=== PATIENT | female | born 1950 | race Caucasian/White ===

== ENCOUNTER 2017-08-06 01:27 | Inpatient (IN) | payer OTHER ==
[~2017-08-06] VITALS: Ht 167.6 cm; Wt 76.7 kg
[~2017-08-06 01:27] MED LIST: AMLODIPINE BESY10 M1 PO; BIOTIN1 MG; TURMERIC500 M2; VITAMIN B COMP1 EACH; VITAMIN C500 M7 PO
[2017-08-06] MEDS ORDERED: DILAUDID2 M1 PO (10:59)
[2017-08-06] MEDS ORDERED: PROTONIX20 M1 PO (10:59)
[2017-08-06] MEDS ORDERED: ASPIRIN EC81 M1 PO (10:59)
[2017-08-06] MEDS ORDERED: MIRALAX17 G1 PO (10:59)
[2017-08-06] MEDS ORDERED: COLACE100 M1 PO (10:59)
--- NOTE | 2017-08-06 11:03 | Patient Discharge Instructions ---
Discharge Instructions General Discharge Information You were seen/treated for: Right hip pain You had these procedures: Right total hip revision Watch for these problems: Fever over 101, Drainage from the wound, Redness or swelling around wound, Unable to bear weight on the right lower extremity No bath, but you may shower: Yes Special Instructions: Daily dry dressing change Diet Continue normal diet: Yes Activity Activity Limited to: Weight bear as tolerated (with rolling walker) Acute Coronary Syndrome Inclusion Criteria At DC or during hospital stay patient has or had the following: ACS DIAGNOSIS No Discharge Core Measures Meds if any: Prescribed or Continued at Discharge Meds if any: NOT Prescribed or Continued at Discharge Congestive Heart Failure Inclusion Criteria At DC or during hospital stay patient has or had the following: CHF DIAGNOSIS No Discharge Core Measures Meds if any: Prescribed or Continued at Discharge Meds if any: NOT Prescribed or Continued at Discharge Cerebrovascular accident Inclusion Criteria At DC or during hospital stay patient has or had the following: CVA/TIA Diagnosis No Discharge Core Measures Meds if any: Prescribed or Continued at Discharge Meds if any: NOT Prescribed or Continued at Discharge Venous thromboembolism Inclusion Criteria VTE Diagnosis No VTE Type NONE VTE Confirmed by (Test) NONE Discharge Core Measures - Per Current guidelines, there needs to be overlap - treatment for the first 5 days of Warfarin therapy. - If discharged on Warfarin prior to 5 days of - overlap therapy, the patient will need to be - assessed for post discharge needs including - *Post discharge parental anticoagulation - *Warfarin and/or parental anticoagulation education - *Follow up date to check INR post discharge At least 5 days overlap therapy as Inpatient No Meds if any: Prescribed or Continued at Discharge Note: Overlap Therapy is Warfarin and Anticoagulant Meds if any: NOT Prescribed or Continued at Discharge
--- NOTE | 2017-08-06 11:03 | Admission Core Measures ---
Acute Coronary Syndrome (CM) ACS Core Measures Acute Coronary Syndrome Diagnosis No Congestive Heart Failure (NEW) CHF Core Measures Congestive Heart Failure Diagnosis No Cerebrovascular Accident CVA Core Measures CVA/TIA Diagnosis No Venous Thromboembolism VTE Core Pawan (View Protocol) VTE Risk Factors Surgery No Mechanical VTE Prophylaxis d/t N/A MechProphylax Ordered No VTE Pharm Prophylaxis d/t NA PharmProphylax ordered Problem List As ranked by this Provider includes Assessment & Plan 1. Mechanical complication of prosthetic hip implant HOME MEDS Home Med List Amlodipine Besylate 10 MG TABLET 1 TAB PO DAILY HTN (Reported) Ascorbic Acid (Vitamin C) 500 MG CAPSULE.ER 1 CAP PO DAILY SUPPLEMENT ( Reported) Aspirin (Ecotrin*) 81 MG TABLET.DR 1 TAB PO BID DVT PPX Docusate Sodium (Colace) 100 MG CAPSULE 1 CAP PO BID STOOL SOFTENER Hydromorphone HCl (Dilaudid) 2 MG TABLET 1-2 TAB PO Q4-6 PRN PRN PAIN Pantoprazole Sodium (Protonix) 20 MG TABLET.DR 1 TAB PO DAILY GI PROTECTION Polyethylene Glycol 3350 (Miralax) 17 GRAM POWD.PACK 1 PAC PO DAILY CONSTIPATION
--- NOTE | 2017-08-06 11:06 | Surgical Discharge Summary ---
Visit Information Visit Dates Admission Date: 08/06/17 Discharge Date: 08/08/17 History of Present Illness Chief Complaint: Right hip pain Surgical History Pertinent Surgical History: hip replacement Review of Systems: As per [facility] Hospital Course Course Attending Physician: Obi Hughes MD Primary Care Physician: Lucia MADERA,[facility] Hospital Course: Patient presented on 08/06/2017 to [facility] for an elective right total hip revision by Dr. Hughes. Patient tolerated the procedure well. Postoperatively she was voiding spontaneously, tolerating a regular diet, pain was managed with by mouth pain medications, and she was ambulating with a rolling walker with physical therapy and was cleared for DC to home. She was given discharge instructions. She was instructed to follow up with Dr. Hughes in 6 weeks and to call sooner with any questions or concerns. Allergies: Coded Allergies: No Known Allergies (08/03/17) NKA PER ANTIBIOTIC ORDER SHEET OF 08/03/17 ([facility]) Disposition Summary Disposition Principal Diagnosis: Complication of right hip implant Additional Diagnosis: Status post right total hip revision Discharge Disposition: home health services Discharge Instructions General Discharge Information Code Status: Full Code Patient's Diet: Regular diet Patient's Activity: Weight-bearing as tolerated with rolling walker Follow-Up Instructions/Appts: Follow-up with Dr. Hughes in 6 weeks Medications at Discharge Discharge Medications: Continue taking these medications: Amlodipine Besylate (Amlodipine Besylate) 10 MG TABLET 1 Tablet ORAL DAILY Turmeric Root Extract (Turmeric) 500 MG CAPSULE Ascorbic Acid (Vitamin C) 500 MG CAPSULE.ER 1 Capsule ORAL DAILY Biotin (Biotin) 1 MG CAPSULE Vitamin B Complex (Vitamin B Complex) 1 EACH CAPSULE Start taking the following new medications: Aspirin (Ecotrin*) 81 MG TABLET.DR 1 Tablet ORAL TWICE DAILY Qty = 60 No Refills Hydromorphone HCl (Dilaudid) 2 MG TABLET 1-2 Tablet ORAL EVERY 4-6 HOURS NEEDED as needed for PAIN Qty = 36 No Refills Docusate Sodium (Colace) 100 MG CAPSULE 1 Capsule ORAL TWICE DAILY Qty = 14 No Refills Instructions: STOP TAKING IF YOU DEVELOP LOOSE STOOL/DIARRHEA Polyethylene Glycol 3350 (Miralax) 17 GRAM POWD.PACK 1 Packet ORAL DAILY Qty = 7 No Refills Instructions: dissolve in water. STOP TAKING IF YOU DEVELOP LOOSE STOOL/DIARRHEA Pantoprazole Sodium (Protonix) 20 MG TABLET.DR 1 Tablet ORAL DAILY Qty = 30 No Refills Copies To: Lucia MADERA,Lucita
--- NOTE | 2017-08-06 16:25 | RADIOLOGY REPORT ---
EXAMINATION: XR HIP, RIGHT CLINICAL INFORMATION: In PACU. COMPARISON: None TECHNIQUE: Two views of the right hip. FINDINGS: Hardware from right hip arthroplasty with femoral cerclage wire noted. The prosthetic femoral head is well situated over the acetabular component. No acute fracture. Surgical drain about the right hip and overlying skin christopher. Postsurgical soft tissue changes. IMPRESSION: Status post right hip arthroplasty without radiographic evidence of acute complication.
[2017-08-06 16:45] VITALS: BP 110/70
--- NOTE | 2017-08-06 17:35 | Operative Report ---
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 After induction of spinal anesthesia and administration of appropriate pre-operative antibiotics, the patient was positioned supine on the operating room table and all bony prominences were well padded. After performing a surgical timeout, the right lower extremity was prepped and draped in the usual sterile fashion. Utilizing the previous incision, an extensile direct anterior approach was made to the right hip. This was carried down through skin and subcutaneous tissue to level the fascia. Meticulous hemostasis was maintained with Bovie electrocautery. The fascia puneet muscle was opened sharply taking care to stay lateral to the lateral femoral cutaneous nerve. The interval between the sartorius and the TFL was entered bluntly and retractors were placed around the anterior pseudocapsule. Prior to opening the capsule it was noted that the capsular area seemed quite full and bulky. A T capsulectomy was performed anteriorly. It was immediately apparent that of the capsular tissue and some of the abductor mechanism had been replaced by caseous, necrotic material. Samples of the pseudocapsule and underlying material was sent for microbiological analysis as well as pathological analysis. Exposure continued until the neck and head were fully exposed. The hip was dislocated and the femoral head and neck were removed with the appropriate instrumentation. Black material was noted at the stem-neck interface. It was noted that the greater trochanter had become osteolytic. Attention was then turned to the acetabulum. The acetabulum was circumferentially exposed. The previous MDM liner was disimpacted with the appropriate tool. The acetabular component was noted to be quite well fixed and in good position. It was irrigated. It was then fit with a new 36 mm 0 Trident X3 polyethylene insert. Attention was then returned to the femur. A Dall-Miles cable was placed proximal to the lesser trochanter. A 1 mm high- speed bur was used to gain entry at the stem bone interface. Flexible osteotomes were then used to disrupt the bone prosthesis interface. Due to the fact that the stem was exceedingly well fixed and the bone quite osteolytic, the greater trochanter, or what was left of it, became quite fragmented. Ultimately , this became a trochanteric osteotomy which greatly aided in exposure of the femoral canal. After the stem was removed, the wound bed was irrigated. The femur was then prepared for a Brittany jew modular conical distal stem. The canal was reamed to accept a 15 mm x 155 mm jew modular conical distal stem. This was impacted into place. The proximal femur was then prepared to accept a 21 mm +0 cone body. This was trialed for leg length and stability. The trial cone body was removed and the final cone body was impacted into place. The torque bolt was tightened to specification. The trunnion was meticulously cleaned and fit with a 36 mm +5 Biolox delta ceramic femoral head. The hip was reduced and put through a full range motion and found to be satisfactorily stable. A medium Hemovac drain was left within the articular space. The wound was copiously irrigated with sterile saline. The articular soft tissues were then infiltrated with Marcaine. The fascial layer was closed with interrupted #1 Vicryl sutures. The skin was reapproximated with interrupted 2-0 Vicryl and closed with christopher. Sterile dressings were applied and the patient was awakened and taken to the recovery room in satisfactory condition.
[2017-08-06 19:38] VITALS: BP 114/67
--- NOTE | 2017-08-06 20:40 | PN- Orthopedic ---
Subjective Subjective: feeling ok, some soreness r hip/groin. mamadou reg diet. no n/v/cp/sob. no oob yet. dtv postop Objective Vital Signs and I&Os Vital Signs Date Time Temp Pulse Resp B/P B/P Pulse O2 O2 Flow FiO2 Mean Ox Delivery Rate 08/06 1937 97.9 61 20 114/67 94 Room Air 08/06 1905 Room Air 08/06 1645 98.0 70 18 110/70 92 Room Air Physical Exam: gen- nad card-s1s2 rrr pulm- ctab abd- soft nt ext- r hip dressing cdi, hemovac in place w approx 100cc sanguinous drainage, grosssensation intact ble, +dorsi/plantar flexion bl Assessment/Plan Assessment/Plan A- POD0 sp revision R ESPERANZA, ebl 500cc, stable w expected pain P- hv to self suction oob, pt, wbat asa 81 bid home meds prn pain meds dtv postop diet as tolerated dsg change pod2 will dw attending Core Measures Venous Thromboembolism VTE Risk Factors Surgery No Mechanical VTE Prophylaxis d/t N/A MechProphylax Ordered No VTE Pharm Prophylaxis d/t NA PharmProphylax ordered
[2017-08-06 22:32] VITALS: BP 110/70
[2017-08-07 02:05] VITALS: BP 104/60
[2017-08-07 06:16] VITALS: BP 144/82
[2017-08-07 08:35] LABS: ABSOLUTE BASOPHIL COUNT 0 /CUMM (0.0-0.2); ABSOLUTE EOSINOPHIL COUNT 0 /CUMM (0.0-0.7); ABSOLUTE GRANULOCYTE CT 8.2 /CUMM (1.4-6.5); ABSOLUTE LYMPH COUNT 1.1 /CUMM (1.2-3.4); ABSOLUTE MONOCYTE COUNT 0.4 /CUMM (0.10-0.60); BASOPHIL % 0.2 % (0.0-2.0); EOSINOPHIL % 0.2 % (0-5); HEMATOCRIT 33.3 % (37-47); MEAN CORPUSCULAR HGB 31.6 PG (27.0-31.0); MEAN CORPUSCULAR HGB CONC 33.7 G/DL (33.0-37.0); MEAN CORPUSCULAR VOLUME 93.7 FL (81.0-99.0); MEAN PLATELET VOLUME 7.3 FL (7.4-10.4); PLATELET COUNT 308 /CUMM (130-400); RBC DISTRIBUTION WIDTH 13.3 % (11.5-14.5); RED BLOOD CELL CT 3.56 /CUMM (4.20-5.40); WHITE BLOOD CELL COUNT 9.8 /CUMM (4.8-10.8)
[2017-08-07 09:35] LABS: GRANULOCYTE % 83.9 % (42.2-75.2)
--- NOTE | 2017-08-07 11:39 | PN- Orthopedic ---
Subjective Subjective: Patient comfortable, pain is mostly controlled, she is having some pain down the leg towards the knee. No acute events overnight. She was able to walk with a walker without much difficulty. Objective Vital Signs and I&Os Vital Signs Date Time Temp Pulse Resp B/P B/P Pulse O2 O2 Flow FiO2 Mean Ox Delivery Rate 08/07 0800 Room Air 08/07 0616 97.8 54 20 144/82 98 Room Air 08/07 0205 97.5 51 18 104/60 96 Room Air 08/06 2232 97.6 54 18 110/70 95 Room Air 08/06 1938 97.9 61 20 114/67 94 Room Air 08/06 1905 Room Air 08/06 1645 98.0 70 18 110/70 92 Room Air Intake & Output 08/07 1600 08/07 0800 08/07 0000 08/06 1600 08/06 0800 08/06 0000 Intake Total 600 1220 Output Total 710 1150 Balance -110 70 Intake, IV 600 720 Intake, Oral 500 Number 0 Bowel Movements Output, 110 250 Drainage Output, Urine 600 900 Patient 153 lb 153 lb Weight Weight Bed scale Reported by Patient Measurement Method Physical Exam: Well-developed well-nourished no apparent distress. HEENT: Atraumatic, extraocular motion intact Neck: Supple, no lymphadenopathy Respiratory: No respiratory distress Extremities: No edema RIGHT lower extremity hip dressing in place, Mild thigh swelling No signs of infection. Hemovac drain in place, approximately 150 cc of bloody drainage noted, holding self suction No shortening or rotation Hip range of motion is limited and without unexpected pain Neurovascularly intact distally Bilateral calves are supple, nontender. Neuro: Alert and oriented x3 Psych: Mood affect normal, normal memory normal judgment. Skin: Warm and dry, no rash on exposed skin Results Last 48 Hours of Labs: Laboratory Tests 08/07 0736 Chemistry Sodium (137 - 145 mmol/L) 140 Potassium (3.5 - 5.1 mmol/L) 4.5 Chloride (98 - 107 mmol/L) 106 Carbon Dioxide (22 - 30 mmol/L) 27 Anion Gap (5 - 16) 6 BUN (7 - 17 mg/dL) 8 Creatinine (0.5 - 1.0 mg/dL) 0.5 Estimated GFR (>60 ml/min) > 60 BUN/Creatinine Ratio (7 - 25 %) 16.0 Hematology CBC w Diff NO MAN DIFF REQ WBC (4.8 - 10.8 /CUMM) 9.8 RBC (4.20 - 5.40 /CUMM) 3.56 L Hgb (12.0 - 16.0 G/DL) 11.2 L Hct (37 - 47 %) 33.3 L MCV (81.0 - 99.0 FL) 93.7 MCH (27.0 - 31.0 PG) 31.6 H MCHC (33.0 - 37.0 G/DL) 33.7 RDW (11.5 - 14.5 %) 13.3 Plt Count (130 - 400 /CUMM) 308 MPV (7.4 - 10.4 FL) 7.3 L Gran % (42.2 - 75.2 %) 83.9 H Lymphocytes % (20.5 - 51.1 %) 11.5 L Monocytes % (1.7 - 9.3 %) 4.2 Eosinophils % (0 - 5 %) 0.2 Basophils % (0.0 - 2.0 %) 0.2 Absolute Granulocytes (1.4 - 6.5 /CUMM) 8.2 H Absolute Lymphocytes (1.2 - 3.4 /CUMM) 1.1 L Absolute Monocytes (0.10 - 0.60 /CUMM) 0.4 Absolute Eosinophils (0.0 - 0.7 /CUMM) 0 Absolute Basophils (0.0 - 0.2 /CUMM) 0 Assessment/Plan Assessment/Plan Postop day #1 status post right total hip arthroplasty revision Perioperative antibiotics. Pain medication as needed. Out of bed Physical therapy, weightbearing as tolerated DC IV fluids Regular diet Continue Hemovac drain, will discuss with Dr. Hughes on timing of drain discontinuation Aspirin for DVT prophylaxis ALPS for DVT prophylaxis Regular home meds Dressing change postop day 2 Core Measures Venous Thromboembolism VTE Risk Factors Surgery No Mechanical VTE Prophylaxis d/t N/A MechProphylax Ordered No VTE Pharm Prophylaxis d/t NA PharmProphylax ordered
[2017-08-07 13:10] VITALS: BP 134/78
[2017-08-07 17:17] VITALS: BP 136/82
[2017-08-07 22:45] VITALS: BP 122/66
[2017-08-08 06:19] VITALS: BP 116/62
[2017-08-08 08:31] VITALS: BP 116/62
--- NOTE | 2017-08-08 09:30 | PN- Orthopedic ---
Subjective Subjective: No acute overnight events reported. Feels more comfortable today, anticipating PT and possible dc to home later today. Denies chest pain, shortness of breath and difficulty breathing. Denies nausea and vomitting. Has been voiding. Objective Vital Signs and I&Os Vital Signs Date Time Temp Pulse Resp B/P B/P Pulse O2 O2 Flow FiO2 Mean Ox Delivery Rate 08/08 0831 65 116/62 08/08 0619 97.7 65 20 116/62 95 Room Air 08/07 2245 98.0 66 17 122/66 95 Room Air 08/07 1717 98.4 63 18 136/82 96 Room Air 08/07 1310 98.1 88 18 134/78 99 Room Air Intake & Output 08/08 1600 08/08 0800 08/08 0000 08/07 1600 08/07 0800 08/07 0000 Intake Total 949 907 2971 Output Total 065 269 8573 380 369 9432 Balance -300 -660 -1180 -90 -110 70 Intake, IV 300 600 720 Intake, Oral 480 500 Number 0 Bowel Movements Output, 60 80 170 110 250 Drainage Output, Urine 918 142 2999 700 600 900 Patient 169 lb 153 lb 153 lb Weight Weight Bed scale Reported by Patient Measurement Method Physical Exam: General: Alert and oriented x3, no acute distress Cardiac: RRR, s1s2 Pulm: CTA bialterally, non-labored respiratory effort Abd: Non-tender, non-distended Ext: Moves all extremities, distal sensaiton intact. Calves soft/non-tender bilaterally. Surgical site: R hip. Dressing dry and itnact. Thigh compartment soft. Drain holding suction. Sanguinous output. Skin edges well approximated with christopher. No erythema, no drainage from incision. Clean dry dressing reapplied. Assessment/Plan Assessment/Plan This is a 66 year old female, POD 2 s/p revision R THR -Continue drain this am, will likely dc this afternnon -OOB, wbat -Continue asa bid for dvt ppx -Continue diet as tolerated Anticipate dc to home later today if clear pt and output less than 50/shift will discuss poc with Dr. Hughes Core Measures Venous Thromboembolism VTE Risk Factors Surgery No Mechanical VTE Prophylaxis d/t N/A MechProphylax Ordered No VTE Pharm Prophylaxis d/t NA PharmProphylax ordered
== END 2017-08-08 14:03 | DRG 468 ==
LOC: SDA 01:27 → ENRESERV 15:14 → ENTRNSPT 16:34 → EDTRNSPT 16:37 → EDTRNSPTSTS 16:37 → 2NB 16:45 → CMPTRNSPT 16:53 → ENPENDDIS 08-08 12:35 → ENTRNSPT 08-08 13:25 → EDTRNSPT 08-08 13:53 → EDTRNSPTSTS 08-08 13:53 → 2NB 08-08 14:03 → CMPTRNSPT 08-08 14:12
PROVIDERS: Physician Assistant Surgical
PROC: 0SR904A Replacement of Right Hip Joint with Ceramic on Polyethylene Synthetic Substitute, Uncemented, Open Approach (ICD-10-PCS; principal; 2017-08-06)
PROC: 0SP90JZ Removal of Synthetic Substitute from Right Hip Joint, Open Approach (ICD-10-PCS; principal; 2017-08-06)
DX: T84.090A Other mechanical complication of internal right hip prosthesis, initial encounter (principal); I10 Essential (primary) hypertension
CPT/HCPCS: 2NSBP; 87070; 87075; 36415; 36592; 73502-RT; 82436; 87086; 97110-GO; 97116-GO; 97161-GP; 97530-GO; J0131; J0690; J0735; J1100; J2405; J3490; J7042

== ENCOUNTER 2017-08-20 09:16 | Emergency (ER) | payer OTHER ==
[~2017-08-20] VITALS: Ht 167.6 cm; Wt 69.4 kg
[~2017-08-20 09:16] MED LIST changes: +ASPIRIN EC81 M1 PO; -BIOTIN1 MG; +BIOTIN1 MG PO; +COLACE100 M1 PO; +DILAUDID2 M1 PO; +MIRALAX17 G1 PO; +PROTONIX20 M1 PO; -TURMERIC500 M2; +TURMERIC500 M2 PO; -VITAMIN B COMP1 EACH; +VITAMIN B COMP1 EACH PO
--- NOTE | 2017-08-20 09:32 | ED UPPER/LOWER EXTREMITY COMPL ---
History of Present Illness General Chief Complaint: Hip Injury Stated Complaint: BIBA,R HIP PAIN, STATUS POST HIP REPLACEMENT Source: patient, old records Exam Limitations: no limitations Vital Signs & Intake/Output Vital Signs & Intake/Output Vital Signs Date Time Temp Pulse Resp B/P B/P Pulse O2 O2 Flow FiO2 Mean Ox Delivery Rate 08/20 1127 98.9 67 18 150/70 98 Room Air 08/20 0956 98 08/20 0922 97.0 78 20 152/82 Room Air Allergies Coded Allergies: No Known Allergies (08/03/17) NKA PER ANTIBIOTIC ORDER SHEET OF 08/03/17 (SJS) Reconcile Medications Amlodipine Besylate 10 MG TABLET 1 TAB PO DAILY HTN (Reported) Ascorbic Acid (Vitamin C) 500 MG CAPSULE.ER 1 CAP PO DAILY SUPPLEMENT ( Reported) Aspirin (Ecotrin*) 81 MG TABLET.DR 1 TAB PO BID DVT PPX Biotin 1 MG CAPSULE 1 CAP PO DAILY SUPPLEMENT (Reported) Docusate Sodium (Colace) 100 MG CAPSULE 1 CAP PO BID STOOL SOFTENER STOP TAKING IF YOU DEVELOP LOOSE STOOL/DIARRHEA Hydromorphone HCl (Dilaudid) 2 MG TABLET 1-2 TAB PO Q4-6 PRN PRN PAIN Pantoprazole Sodium (Protonix) 20 MG TABLET.DR 1 TAB PO DAILY GI PROTECTION Polyethylene Glycol 3350 (Miralax) 17 GRAM POWD.PACK 1 PAC PO DAILY CONSTIPATION dissolve in water. STOP TAKING IF YOU DEVELOP LOOSE STOOL/DIARRHEA Turmeric Root Extract (Turmeric) 500 MG CAPSULE 1 CAP PO DAILY SUPPLEMENT ( Reported) Vitamin B Complex 1 EACH CAPSULE 1 CAP PO DAILY VITAMIN SUPPORT (Reported) Triage Note: PT TO ED C/O RIGHT HIP PAIN SINCE SUNDAY. PT IS S/P RIGHT HIP REVISION 08/[address] GUERRIER HERE. HAS BEEN DOING PHYSICAL THERAPY WITH NO ISSUES. WAS SITTING ON THE COUCH ON SUNDAY AND FELT A "SPASM" HAS BEEN HAVING A HARD TIME WALKING SINCE. DENIES OBVIOUS INJURY/FALLING. Triage Nurses Notes Reviewed? yes Onset: Gradual Duration: day(s): Timing: YESTERDAY Severity: moderate Pain/Injury Location: Right: Hip. Method of Injury: unknown HPI: 66yo female with hx of right total hip revision by Dr. Hickman on 08/06/17 presents to ED complaining of worsening pain in right hip beginning yesterday. Patient states she feels as tho the right hip is out of place. Patient has taken 600mg ibuprofen and PO dilaudid did not relieve her pain. No fall or trauma prior to onset of pain. Patient states she was sitting on her couch when her pain began. The patient states that initially after her hip revision her pain and been improving, the patient was able to walk and drive. The patient denies numbness, tingling, urinary incontinence. (Tianna Enciso) Past History Travel History Traveled to [place] past 21 day No Medical History Any Pertinent Medical History? see below for history Cardiovascular: hypertension Musculoskeletal: RIGHT HIP REPLACMENT Cancer(s): RIGHT BREAST LUMPECTOMY History of MRSA: No History of VRE: No History of CDIFF: No Surgical History Surgical History: hip replacement Psychosocial History Who do you live with Patient/Self Services at Home None What is your primary language American Tobacco Use: Quit >30 days ago ETOH Use: denies use Illicit Drug Use: denies illicit drug use Family History Hx Contributory? No (Tianna Enciso) Review of Systems Review of Systems Constitutional: Reports: no symptoms. EENTM: Reports: no symptoms. Respiratory: Reports: no symptoms. Cardiovascular: Reports: no symptoms. Gastrointestinal/Abdominal: Reports: no symptoms. Genitourinary: Reports: no symptoms. Musculoskeletal: Reports: see HPI. Skin: Reports: no symptoms. Neurological/Psychological: Reports: no symptoms. Hematologic/Endocrine: Reports: no symptoms. Immunological: Reports: no symptoms. All Other Systems: Reviewed and Negative (Tianna Enciso) Physical Exam Physical Exam General Appearance: well developed/nourished, no apparent distress, alert, awake Head: atraumatic, normal appearance Eyes: Bilateral: normal appearance. Ears, Nose, Throat: hearing grossly normal Neck: normal inspection, supple, full range of motion Cardiovascular/Respiratory: normal peripheral pulses, no respiratory distress Peripheral Pulses: 2+ dorsalis pedis (R) Back: normal inspection, normal range of motion Leg Right: right leg shortened and externally rotated Hip Left: normal range of motion, normal inspection Hip Right: healing incisional site with christopher in place, no erythema or warmth Neurologic/Tendon: normal sensation, normal tendon functions Skin: intact, normal color, warm/dry (Tianna Enciso) Progress Differential Diagnosis: arterial insufficiency, contusion, dislocation, fracture , sprain, tendon injury Plan of Care: Orders Procedure Date/time Status XRY-HIP 2-3 VIEWS, RIGHT 08/20 1317 Active PARTIAL THROMBOPLASTIN TIME 08/20 1100 Complete PROTHROMBIN TIME 08/20 1100 Complete COMPREHENSIVE METABOLIC PANEL 08/20 1100 Complete CBC WITHOUT DIFFERENTIAL 08/20 1099 Complete EKG 08/20 1099 Active Laboratory Tests 08/20/17 1103: Anion Gap 13, Estimated GFR > 60, BUN/Creatinine Ratio 25.0, Glucose 87, Calcium 9.2, Total Bilirubin 0.7, AST 24, ALT 31, Alkaline Phosphatase 73, Total Protein 6.4, Albumin 3.5, Globulin 2.9, Albumin/Globulin Ratio 1.2, PT 11.5, INR 1.05, APTT 26, CBC w Diff NO MAN DIFF REQ, RBC 3.67 L, MCV 93.1, MCH 31.8 H, MCHC 34.1, RDW 12.8, MPV 6.2 L, Gran % 76.8 H, Lymphocytes % 16.8 L, Monocytes % 5.1, Eosinophils % 1.0, Basophils % 0.3, Absolute Granulocytes 5.5, Absolute Lymphocytes 1.2, Absolute Monocytes 0.4, Absolute Eosinophils 0.1, Absolute Basophils 0 xray shows dislocation and fracture of right hip. Spoke with office staff from Dr. Guerrier's office. They state Dr. Oneal is front desk person, the patient would need to be transferred to [facility] or [facility]. Awaiting return page from Dr. Oneal. Spoke with Surigcal PA who has talked to Dr. Guerrier (who is away on vacation). Dr. Guerrier informed the surgical PA that the patient had fracture fragments before. He reviewed the patient's xrays today and recommends reduction and discharge from ED. Discharge on posterior hip precautions and hyper extension precautions. No bending at the back, no more than 90 degrees at the waist, no crossing legs, avoid flexion and internal rotation. WEight bearing at tolerated. The office will reach out to the patient for follow up. Reduction performed by myself with Dr. Mccormick present for moderate sedation. Patient tolerated the procedure well. Postreduction x-ray shows reduced hip. Patient was given strict hip precautions to prevent further dislocations. Patient feels ready to go home at this time. She agrees with the plan of care. Diagnostic Imaging: Viewed by Me: Radiology Read. Discussed w/RAD: Radiology Read. Radiology Impression: PATIENT: CHRISTEN VIDES PRESENT AGE: 66 PATIENT ACCOUNT NO: [id number] : 49 LOCATION: [facility] ORDERING PHYSICIAN: Tianna MUÑOZ SERVICE DATE: 08/20/17 EXAM TYPE: RAD - XRY-HIP 2-3 VIEWS, RIGHT EXAMINATION: XR HIP, RIGHT CLINICAL INFORMATION: Severe right hip pain and decreased range of motion. History of right total hip revision on 08/06/2017. Presumptive diagnosis: Dislocation. COMPARISON: Postop right hip revision examination on 08/06/2017. TECHNIQUE: Two views of the right hip. FINDINGS: Patient has sustained an anterior and superior dislocation of the hip prosthesis. In addition, there is evidence of a comminuted displaced fracture involving the greater trochanter with bone fragments in the soft tissues. There is attempted healing with some periosteal bone reaction involving the proximal lateral cortex. This fracture may have been present on the prior x- ray. At that time there was no displacement. IMPRESSION: 1. Dislocation of the hip prosthesis. 2. Comminuted fractured greater trochanter with displaced fracture fragments. DICTATED BY: Shiva Lee MD DATE/TIME DICTATED:1033 INDUSTRIAL MAINTENANCE INSTRUCTOR:ZACHARIAH DATE/TIME TRANSCRIBED:08/20/171033 CONFIDENTIAL, DO NOT COPY WITHOUT APPROPRIATE AUTHORIZATION. <Electronically signed in Other Vendor System> SIGNED BY: Shiva Lee MD 08/20/17 1045, PATIENT: CHRISTEN VIDES PRESENT AGE: 66 PATIENT ACCOUNT NO: [id number] : 49 LOCATION: [facility] ORDERING PHYSICIAN: Tianna MUÑOZ SERVICE DATE: 08/20/17 EXAM TYPE: RAD - XRY-HIP 2- 3 VIEWS, RIGHT EXAMINATION: XR HIP, RIGHT CLINICAL INFORMATION: Status post right hip reduction COMPARISON: Prior examinations most recent 08/20/2017 at 10:05 AM TECHNIQUE: Two views of the right hip. FINDINGS: The previously noted dislocated hip has been reduced. The patient is status post right total hip arthroplasty. There is a cerclage wire in the subtrochanteric portion of the femur. There are mildly displaced bony fragments from the greater trochanter unchanged presumably related to fracture. Skin christopher remain in place. The bones and soft tissues are otherwise unremarkable. IMPRESSION: The previously noted right hip dislocation has been reduced. Otherwise unchanged. DICTATED BY: Jose Angel Guevara MD DATE/TIME DICTATED:08/20/171441 INDUSTRIAL MAINTENANCE INSTRUCTOR: ZACHARIAH DATE/TIME TRANSCRIBED:08/20/171441 CONFIDENTIAL, DO NOT COPY WITHOUT APPROPRIATE AUTHORIZATION. <Electronically signed in Other Vendor System> SIGNED BY: Jose Angel Guevara MD 08/20/171448 Initial ED EKG: sinus rhythm @68bpm, first degree AV block, nonspecific ST changes (Taylor MUÑOZ,Tianna Huerta) Departure Departure Disposition: HOME OR SELF CARE Condition: Stable Clinical Impression Primary Impression: Hip dislocation, right Qualifiers: Encounter type: initial encounter Qualified Code: S73.004A - Unspecified dislocation of right hip, initial encounter Referrals: Lucita Myers MD (PCP/Family) Additional Instructions: Follow-up with your orthopedic in the office. They should be calling you to make an appointment for you. Avoid raising your leg up or swinging her leg behind Maylin. No bending at the back, no bending more than 90 degrees at the waist, no crossing legs, do not rotate your knee inward. Return with worsening symptoms or concerns. Please note that there might be incidental findings in your evaluation that are unrelated to the current emergency department visit. Please notify your primary care doctor about this emergency department visit in order to obtain and review all of the testing performed so that these incidental findings can be monitored as needed. If you had an x-ray performed, please understand that some fractures may not be seen on the initial set of x-rays. If your symptoms persist you might need a repeat set of x-rays to check for such a fracture. If you had a laceration evaluated, please understand that foreign bodies such as glass or wood may not be visible to the naked eye or on plain x-rays. If the wound becomes red, swollen, increasingly more painful or if there is any drainage from the wound, please have it reevaluated by a physician for the possibility of a retained foreign body. If you're unable to follow up as outlined in the discharge instructions please return to the emergency department. Thank you for choosing the [facility] Emergency Department for your care. It was a pleasure to serve you today. Departure Forms: Customer Survey General Discharge Information (Tianna Enciso) PA/OPERATOR SPECIALIST COMMUNICATIONS Co-Sign Statement Statement: ED Attending supervision documentation- x I saw and evaluated the patient. I have also reviewed all the pertinent lab results and diagnostic results. I agree with the findings and the plan of care as documented in the PA's/OPERATOR SPECIALIST COMMUNICATIONS's documentation. [] I have reviewed the ED Record and agree with the PA's/OPERATOR SPECIALIST COMMUNICATIONS's documentation. [] Additions or exceptions (if any) to the PAs/OPERATOR SPECIALIST COMMUNICATIONS's note and plan are summarized below: [] (Nixon Mccormick MD) Procedures Joint Reduction Joint Reduction Site: hip (R) Conscious Sedation: conscious sedation, performed by other (Dr. Mccormick) Reduction Attempts: 1 Pre-Procedure NV Exam: Yes Post-Procedure NV Exam: Yes Post Joint Reduction Film: joint reduced Progress: Joint was reduced by myself with Dr. Mccormick present for concious sedation. 1 attempt made. Post reduction films show successful reduced hip. Patient tolerated the procedure well. (Tianna Enciso) Procedural Sedation Sedation Type: moderate Indication: hip reduction Prior Complications: none (Nixon Mccormick MD)
--- NOTE | 2017-08-20 10:45 | RADIOLOGY REPORT ---
EXAMINATION: XR HIP, RIGHT CLINICAL INFORMATION: Severe right hip pain and decreased range of motion. History of right total hip revision on 08/06/2017. Presumptive diagnosis: Dislocation. COMPARISON: Postop right hip revision examination on 08/06/2017. TECHNIQUE: Two views of the right hip. FINDINGS: Patient has sustained an anterior and superior dislocation of the hip prosthesis. In addition, there is evidence of a comminuted displaced fracture involving the greater trochanter with bone fragments in the soft tissues. There is attempted healing with some periosteal bone reaction involving the proximal lateral cortex. This fracture may have been present on the prior x-ray. At that time there was no displacement. IMPRESSION: 1. Dislocation of the hip prosthesis. 2. Comminuted fractured greater trochanter with displaced fracture fragments.
[2017-08-20 11:15] LABS: ABSOLUTE BASOPHIL COUNT 0 /CUMM (0.0-0.2); ABSOLUTE EOSINOPHIL COUNT 0.1 /CUMM (0.0-0.7); ABSOLUTE GRANULOCYTE CT 5.5 /CUMM (1.4-6.5); ABSOLUTE LYMPH COUNT 1.2 /CUMM (1.2-3.4); ABSOLUTE MONOCYTE COUNT 0.4 /CUMM (0.10-0.60); BASOPHIL % 0.3 % (0.0-2.0); GRANULOCYTE % 76.8 % (42.2-75.2); HEMATOCRIT 34.1 % (37-47); MEAN CORPUSCULAR HGB 31.8 PG (27.0-31.0); MEAN CORPUSCULAR HGB CONC 34.1 G/DL (33.0-37.0); MEAN CORPUSCULAR VOLUME 93.1 FL (81.0-99.0); MEAN PLATELET VOLUME 6.2 FL (7.4-10.4); PLATELET COUNT 585 /CUMM (130-400); RBC DISTRIBUTION WIDTH 12.8 % (11.5-14.5); RED BLOOD CELL CT 3.67 /CUMM (4.20-5.40); WHITE BLOOD CELL COUNT 7.2 /CUMM (4.8-10.8)
[2017-08-20 11:24] LABS: PT 11.5 SEC (9.4-12.5); PTT 26 SEC (25-37)
--- NOTE | 2017-08-20 14:49 | RADIOLOGY REPORT ---
EXAMINATION: XR HIP, RIGHT CLINICAL INFORMATION: Status post right hip reduction COMPARISON: Prior examinations most recent 08/20/2017 at 10:05 AM TECHNIQUE: Two views of the right hip. FINDINGS: The previously noted dislocated hip has been reduced. The patient is status post right total hip arthroplasty. There is a cerclage wire in the subtrochanteric portion of the femur. There are mildly displaced bony fragments from the greater trochanter unchanged presumably related to fracture. Skin christopher remain in place. The bones and soft tissues are otherwise unremarkable. IMPRESSION: The previously noted right hip dislocation has been reduced. Otherwise unchanged.
[2017-08-20 15:03] VITALS: BP 137/75
== END 2017-08-20 15:15 ==
LOC: ERH 09:16
PROVIDERS: Physician Assistant
DX: T84.020A Dislocation of internal right hip prosthesis, initial encounter (principal); X58.XXXA Exposure to other specified factors, initial encounter
CPT/HCPCS: 73502-RT; 93005; 93010; 96374; J1885